=== PATIENT | male | born 1975 | race Caucasian/White ===

== ENCOUNTER → 2020-11-16 | Outpatient (CLI) | payer OTHER ==
--- NOTE | 2020-11-18 09:13 | REP ---
INDICATION: LT ANKLE PAIN. Pain status post twisting injury 2 months prior. COMPARISON: Comparison radiographs are from October 03, 2020 done at [facility]. TECHNIQUE: Axial, coronal, and sagittal imaging planes are acquired using some T1 and fat sat T2 weighted sequences in the usual fashion. FINDINGS: There is plantar calcaneal spurring which corresponds with the radiograph. There is a small ankle joint effusion. No occult fracture is seen. The subtalar and intertarsal articulations are unremarkable. There is a ganglion cyst at the lateral midfoot adjacent to, and superficial to the proximal 4th and 5th metatarsals. This septated ganglion cyst measures 3.3 cm in proximal to distal length by 1.1 cm plantar to dorsal by 1.0 cm right to left. No other abnormal fluid collection is seen. There is some fluid in the tendon sheaths 4 the flexor tendons medially but this can be a normal finding. Tibialis posterior, flexor digitorum, and flexor hallucis longus tendons have an intact appearance. Laterally, intact peroneus longus and brevis tendons are seen. The Achilles tendon is normal in course and caliber and homogeneous and low in signal intensity. There is a tiny subcortical cyst in the posterior calcaneus at the distal Achilles attachment. No edema or erosive change. There is not evidence of tarsal coalition. Subtalar articulation is unremarkable. The deltoid ligamentous complex appears to be intact. The calcaneofibular and posterior talofibular ligaments are intact. The anterior talofibular ligament appears intact. As does the anterior inferior tibiofibular ligament. IMPRESSION: Plantar fascial spurring. Ganglion cyst in the lateral midfoot. No occult fracture. No evidence of ligament disruption or definite tendinopathy. <Electronically signed by Tre Guzmán > 11/18/20 0916
== END ==
LOC: M PLAIMG 12:53
PROVIDERS: ATTEND Family Medicine
DX: M77.52 Other enthesopathy of left foot and ankle (principal); M67.472 Ganglion, left ankle and foot

== ENCOUNTER → 2022-09-24 | Day surgery (SDC) | payer OTHER ==
[~2022-09-24] VITALS: Ht 167.6 cm; Wt 71.9 kg
[~2022-09-24] MED LIST: FLUT50SP17; HYDR-3363 PO; LORA-930 PO; NS 1,000 ML IV ONE; OMEP-173 PO; TRAZ-257 PO; VENL75CA47 PO; fentaNYL 100 MCG/2 ML INJECTION As Ordered ONE; propofoL 200 MG/20 ML VIAL As Ordered ONE
[2022-09-24 12:41] VITALS: BP 125/81; TEMP 98.2; O2SAT 96
== END | disposition home or self-care (01) ==
LOC: M OPP 10:09
PROVIDERS: ATTEND Internal Medicine Gastroenterology
DX: Z12.11 Encounter for screening for malignant neoplasm of colon (principal); K57.30 Diverticulosis of large intestine without perforation or abscess without bleeding; K64.4 Residual hemorrhoidal skin tags; K64.8 Other hemorrhoids; K44.9 Diaphragmatic hernia without obstruction or gangrene; K31.89 Other diseases of stomach and duodenum; K21.00 Gastro-esophageal reflux disease with esophagitis, without bleeding; K22.89 Other specified disease of esophagus; F17.200 Nicotine dependence, unspecified, uncomplicated; Z91.040 Latex allergy status; Z91.048 Other nonmedicinal substance allergy status
CPT/HCPCS: 43239; 45380; 88305; J3010

== ENCOUNTER → 2023-02-04 | Outpatient (CLI) | payer OTHER ==
[~2023-02-04] MED LIST changes: -FLUT50SP17; +FLUTISP; -NS 1,000 ML IV ONE; -fentaNYL 100 MCG/2 ML INJECTION As Ordered ONE; -propofoL 200 MG/20 ML VIAL As Ordered ONE
[2023-02-04 16:02] LABS: BASO # 0.1 10^3/uL (0.0-0.2); BASO % 0.8 % (0.0-1.0); EOS # 0.1 10^3/uL (0.0-0.5); EOS % 1.7 % (0.0-3.0); HEMATOCRIT 45.5 % (42.0-52.0); HEMOGLOBIN 15.5 g/dl (13.5-17.5); LYMPH # 2.3 10^3/uL (1.5-5.0); LYMPH % 32.2 % (24.0-44.0); MEAN CORPUSCULAR HEMOGLOBIN 32.4 pg (27.0-33.0); MEAN CORPUSCULAR HGB CONC 34.1 g/dl (32.0-36.5); MEAN CORPUSCULAR VOLUME 95.2 fl (80.0-96.0); MONO # 0.7 10^3/uL (0.0-0.8); MONO % 9.4 % (2.0-8.0); NEUTROPHILS % 55.6 % (36.0-66.0); PLATELET COUNT, AUTOMATED 285 10^3/uL (150-450); RED BLOOD COUNT 4.78 10^6/uL (4.30-6.10); WHITE BLOOD COUNT 7.2 10^3/uL (4.0-10.0)
[2023-02-04 16:09] LABS: ERYTHROCYTE SEDIMENTATION RATE 2 mm/hr (0-15)
[2023-02-06 21:07] LABS: IgG P18 AB Absent (.); IgG P23 AB Absent (.); IgG P28 AB Absent (.); IgG P30 AB Absent (.); IgG P39 AB Absent (.); IgG P41 AB Absent (.); IgG P45 AB Absent (.); IgG P66 AB Absent (.); IgG P93 AB Absent (.); IgM P23 AB Absent (.); IgM P39 AB Absent (.); IgM P41 AB Absent (.); LYME IgG WB INTERPRETATION Negative (.); LYME IgM WB INTERPRETATION Negative (.)
== END ==
LOC: M PLALAB 11:40
PROVIDERS: ATTEND Internal Medicine Infectious Disease
DX: A69.20 Lyme disease, unspecified (principal)
CPT/HCPCS: 36415; 85025; 85652; 86140; 86617; G0463

== ENCOUNTER → 2023-02-28 | Outpatient (CLI) | payer OTHER | LOC: M RAD 10:01 | PROVIDERS: ATTEND Nurse Practitioner Family | DX: R10.11 Right upper quadrant pain (principal); K76.0 Fatty (change of) liver, not elsewhere classified ==

== ENCOUNTER → 2023-05-16 | Outpatient (CLI) | payer OTHER | LOC: M RAD 11:32 | PROVIDERS: ATTEND Nurse Practitioner Family | DX: R10.11 Right upper quadrant pain (principal); K87 Disorders of gallbladder, biliary tract and pancreas in diseases classified elsewhere | CPT/HCPCS: 78227; A9537 ==